=== PATIENT | female | born 1975 | race Caucasian/White ===

== ENCOUNTER 2021-09-14 09:44 | Inpatient (IN) | payer OTHER ==
[2021-09-14] MEDS ORDERED: methaDONE HCL 10 MG TABLET (FOR DETOX USE ONLY) PO ONE (11:16)
[2021-09-14] MEDS ORDERED: MAGNESIUM CITRATE 300 ML BOTTLE PO PRN (11:16)
[2021-09-14] MEDS ORDERED: BISMUTH SUBSALICYLATE 262 MG/15 ML BTL PO PRN (11:16)
[2021-09-14] MEDS ORDERED: MAGNESIUM HYDROX 2400MG/30ML ORAL SUSPENSION 30 ML CUP PO PRN (11:16)
[2021-09-14] MEDS ORDERED: METHOCARBAMOL 500 MG TABLET PO PRN (11:16)
[2021-09-14] MEDS ORDERED: MAG HYDROX/AL HYDROX/SIMETH 30 ML UNIT-DOSE CUP PO PRN (11:16)
[2021-09-14] MEDS ORDERED: MENTHOL/PHENOL 1 EACH UD MM PRN (11:16)
[2021-09-14] MEDS ORDERED: IBUPROFEN 400 MG TABLET (FP) PO PRN (11:16)
[2021-09-14] MEDS ORDERED: LOPERAMIDE HCL 2 MG CAPSULE PO PRN (11:16)
[2021-09-14] MEDS ORDERED: ONDANSETRON *ODT* 4 MG TABLET SL PRN (11:16)
[2021-09-14] MEDS ORDERED: cloNIDine HCL 0.1 MG TABLET PO PRN (11:16)
[2021-09-14] MEDS ORDERED: ACETAMINOPHEN 325 MG TABLET (FP) PO PRN ×2 (11:16)
[2021-09-14 11:29] VITALS: BMI 22.6
[2021-09-14] MEDS: PRENATAL VITAMINS W/ FOLIC ACID TABLET (FP) PO SCH (13:00)
[2021-09-14] MEDS: NICOTINE 14 MG/24 HOURS TOPICAL PATCH TD SCH (14:16)
[2021-09-14] MEDS: hydrOXYzine PAMOATE 25 MG CAPSULE (FP) PO SCH ×2 (14:21→17:39)
[2021-09-14] MEDS: NICOTINE 10 MG CARTRIDGE (INHALER) IH PRN (14:31)
[2021-09-14 15:06] LABS: HEMATOCRIT 34.9 % (32.4-45.2); HEMOGLOBIN 11.8 GM/dL (10.7-15.3); MCH 30.4 pg (25.7-33.7); MEAN CELL VOLUME 89.3 fl (80-96); MEAN PLT VOLUME 7.6 fl (7.5-11.1); PLATELET COUNT 221 10^3/uL (134-434); RDW 13.3 % (11.6-15.6); WHITE BLOOD COUNT 4.9 K/mm3 (4.0-10.0)
[2021-09-14 15:54] LABS: BLOOD UREA NITROGEN 8.1 mg/dL (7-18); CALCIUM 8.6 mg/dL (8.5-10.1)
[2021-09-14 15:56] LABS: CREATININE 0.7 mg/dL (0.55-1.3)
[2021-09-14 15:59] LABS: TOT PROT 6.7 g/dl (6.4-8.2)
[2021-09-14 16:00] LABS: BILIRUBIN,TOTAL 0.5 mg/dL (0.2-1)
[2021-09-14] MEDS: MELATONIN 5 MG TABLETS PO SCH (21:20)
[2021-09-14] MEDS: THIAMINE HCL 100 MG TABLET (FP) PO SCH (21:21)
[2021-09-14] MEDS: diazePAM 5 MG TABLET PO PRN (21:23)
[2021-09-15] MEDS: NICOTINE 10 MG CARTRIDGE (INHALER) IH PRN ×2 (07:54→17:01)
[2021-09-15] MEDS ORDERED: methaDONE HCL 10 MG TABLET (FOR DETOX USE ONLY) ONE (08:41)
[2021-09-15] MEDS: PRENATAL VITAMINS W/ FOLIC ACID TABLET (FP) PO SCH (10:05)
[2021-09-15] MEDS: NICOTINE 14 MG/24 HOURS TOPICAL PATCH TD SCH (10:05)
[2021-09-15] MEDS: diazePAM 5 MG TABLET PO PRN (17:06)
[2021-09-15] MEDS: BACITRACIN 0.9 GM PACKET TP SCH (22:01)
[2021-09-15] MEDS: MELATONIN 5 MG TABLETS PO SCH (23:26)
[2021-09-15] MEDS: THIAMINE HCL 100 MG TABLET (FP) PO SCH (23:26)
[2021-09-16] MEDS: diazePAM 5 MG TABLET PO PRN (05:57)
[2021-09-16] MEDS ORDERED: methaDONE HCL 10 MG TABLET (FOR DETOX USE ONLY) PO ONE (10:00)
[2021-09-16] MEDS: PRENATAL VITAMINS W/ FOLIC ACID TABLET (FP) PO SCH (10:17)
[2021-09-16] MEDS: BACITRACIN 0.9 GM PACKET TP SCH (10:17)
[2021-09-16] MEDS: NICOTINE 14 MG/24 HOURS TOPICAL PATCH TD SCH (10:20)
[2021-09-16 14:07] LABS: SARS-CoV-2 NAA Not Detected (Not Detected)
[2021-09-16 19:52] VITALS: BP 115/71; PULSE 89; TEMP 97.8
[2021-09-18] MEDS ORDERED: methaDONE HCL 10 MG TABLET (FOR DETOX USE ONLY) PO ONE (10:00)
== END 2021-09-16 19:05 | disposition left against medical advice (07) | DRG 770 ==
LOC: YASAS 09:44 → Y3N 11:49
PROVIDERS: ADMIT Allergy & Immunology; ATTEND Allergy & Immunology
PROC: HZ2ZZZZ Detoxification Services for Substance Abuse Treatment (ICD-10-PCS; principal; 2021-09-14)
DX: F11.23 Opioid dependence with withdrawal (principal); F13.230 Sedative, hypnotic or anxiolytic dependence with withdrawal, uncomplicated; F14.20 Cocaine dependence, uncomplicated; F17.210 Nicotine dependence, cigarettes, uncomplicated; Z59.00 Homelessness unspecified
CPT/HCPCS: 36415; 80053; 81025; 85027; 86780; 87811; 93005; 93010; C9803; J0735; U0003; U0005